=== PATIENT | male | born 1980 | race Two or more races ===

== ENCOUNTER 2022-09-03 11:50 | Emergency (ER) | payer OTHER ==
[~2022-09-03] VITALS: Ht 177.8 cm; Wt 79.4 kg
[2022-09-03] MEDS ORDERED: NORFLEX100MG PO (16:54)
[2022-09-03] MEDS ORDERED: KETO10TA2 PO (16:54)
== END 2022-09-03 17:47 | disposition home or self-care (01) ==
LOC: ER 11:50
DX: M25.512 Pain in left shoulder (principal); M77.8 Other enthesopathies, not elsewhere classified

== ENCOUNTER 2023-04-26 18:46 | Emergency (ER) | payer OTHER ==
[~2023-04-26] VITALS: Ht 177.8 cm; Wt 79.4 kg
[~2023-04-26 18:46] MED LIST: KETO10TA2 PO; NORFLEX100MG PO
== END 2023-04-26 19:57 | disposition home or self-care (01) ==
LOC: ER 18:46
DX: R06.02 Shortness of breath (principal); M54.9 Dorsalgia, unspecified

== ENCOUNTER 2025-05-12 19:36 | Emergency (ER) | payer OTHER ==
[~2025-05-12] VITALS: Ht 177.8 cm; Wt 79.4 kg
[2025-05-12] MEDS ORDERED: KETOROLAC TROMETHAMINE 60 MG VIAL IM STA (20:11)
[2025-05-12] MEDS ORDERED: ORPHENADRINE CITRATE 30 MG/ML AMPUL IM STA (20:12)
[2025-05-12] MEDS ORDERED: DEXAMETHASONE SODIUM PHOSPHATE 4 MG/ML VIAL IM STA (20:13)
== END 2025-05-12 21:23 | disposition home or self-care (01) ==
LOC: ER 19:36
DX: M62.830 Muscle spasm of back (principal)